=== PATIENT | female | born 1995 | race Two or more races ===

== ENCOUNTER 2016-07-24 01:23 | Inpatient (IN) | payer MEDICAID ==
[2016-07-24] MEDS ORDERED: Sodium Chloride 0.9% 10 ML Syringe FLUSH PRN (02:03)
[2016-07-24] MEDS ORDERED: Nalbuphine 10 MG/1 ML Vial IVPUSH ONE ×2 (05:25→10:43)
[2016-07-24] MEDS ORDERED: Nalbuphine 10 MG/1 ML Vial ONE (05:29)
[2016-07-24] MEDS ORDERED: Oxytocin 10 UNIT in Sodium Chloride 0.9% 1,000 ML IV SCH (08:15)
[2016-07-24] MEDS: Lactated Ringers 1,000 ML IV SCH ×2 (08:25→13:58)
--- NOTE | 2016-07-24 10:04 | PN ---
DATE SEEN: 07/24/2016 SUBJECTIVE: A 20-year-old, G1, P0. EDC of 07/29, 39 and 2 comes in with spontaneous rupture of membranes. The patient is pretty comfortable at this time. She has no concerns. She was given Nubain about an hour and half ago. OBJECTIVE: Cervix is 6 cm, 100% effaced, minus 1. heart tones are reactive and between 130s and 150s. ASSESSMENT: Primipara, spontaneous rupture of membranes. PLAN: Vaginal delivery. Also, she is group B negative, because I looked in the chart. I have the chart sent over. She was a late transfer to our clinic. /[id number] PE/MODL
--- NOTE | 2016-07-24 13:01 | PN ---
DATE SEEN: 07/24/2016 SUBJECTIVE: The patient is moe, clear fluid. OBJECTIVE: heart tones are reactive. Cervix is 8+, 100% effaced, and zero station. ASSESSMENT: Spontaneous labor with spontaneous rupture of membranes. PLAN: Vaginal delivery. Group B negative. /[id number] PE/MODL
[2016-07-24] MEDS ORDERED: fentaNYL 100 MCG/2 ML SDV ITHECAL ONE (13:20)
[2016-07-24] MEDS ORDERED: Morphine PF 10 MG/10 ML SDV ONE (13:20)
[2016-07-24] MEDS ORDERED: Scopolamine 1.5 MG Transdermal Patch ONE (13:40)
[2016-07-24] MEDS ORDERED: Metoclopramide 10 MG/2 ML SDV IV PRN (14:04)
[2016-07-24] MEDS ORDERED: Naltrexone 50 MG Tab PO PRN (14:04)
[2016-07-24] MEDS ORDERED: diphenhydrAMINE 50 MG/ML SDV IVPUSH PRN (14:04)
[2016-07-24] MEDS ORDERED: Ondansetron 4 MG/2 ML SDV IVPUSH PRN (14:04)
[2016-07-24] MEDS ORDERED: Naloxone 0.4 MG/ML SDV IVPUSH PRN (14:04)
[2016-07-24] MEDS ORDERED: Scopolamine 1.5 MG Transdermal Patch TOP ONE (14:04)
[2016-07-24] MEDS ORDERED: Promethazine 12.5 MG in Sodium Chloride 0.9% 50 ML IV PRN (14:04)
[2016-07-24] MEDS ORDERED: Nalbuphine 10 MG/1 ML Vial IVPUSH PRN (14:04)
[2016-07-24] MEDS ORDERED: Promethazine 6.25 MG in Sodium Chloride 0.9% 50 ML IV PRN (14:04)
[2016-07-24] MEDS ORDERED: diphenhydrAMINE 50 MG/ML SDV IV PRN (14:04)
[2016-07-24] MEDS ORDERED: ePHEDrine 50 MG/ML SDV IVPUSH PRN (14:04)
[2016-07-24] MEDS ORDERED: Famotidine/Normal Saline 20 MG in Premix Bag 50 BAG IV PRN (14:04)
[2016-07-24] MEDS ORDERED: Lactated Ringers 500 ML IV SCH ×2 (14:15)
[2016-07-24] MEDS ORDERED: Oxytocin 10 Units/1 ML SDV IM ONE (16:24)
[2016-07-24] MEDS ORDERED: Lidocaine 1% 20 ML MDV INJECT ONE (16:30)
[2016-07-24] MEDS ORDERED: Acetaminophen/Codeine 300-30 MG Tab PO PRN (17:05)
--- NOTE | 2016-07-24 17:10 | PCM.DEL ---
L & D Note - General Info Date of Service: 07/24/16 - Delivery Note Labor: augmented by oxytocin Delivery Outcome: Livebirth Presentation: OA Nuchal cord: none Anesthesia Type: Local, Intrathecal Anesthetic: lidocaine (xylocaine) 0.5% plain Local anesthetic volume: 5cc Amniotic Fluid Description: Clear Laceration: 2nd degree, periurethral Suture type: vicryl Suture size: 4-0 Placenta: intact, spontaneous Cord: 3 vessels Resuscitation needed: No Dobbins: bulb syringe - Patient Data Vitals - most recent: Last Vital Signs Temp 97.3 F 07/24/16 11:30 Pulse 84 07/24/16 14:45 Resp 20 07/24/16 14:14 BP 124/64 07/24/16 14:14 Pulse Ox 99 07/24/16 14:45 Weight - most recent: 225 lb Med Orders - Current: Current Medications Acetaminophen/Codeine Phosphate (Tylenol With Codeine No.3 300mg/30mg) 1 tab PO Q4H PRN PRN Reason: Pain (moderate 4-6) Diphenhydramine HCl (Benadryl) 25 mg IVPUSH ASDIRECTED PRN PRN Reason: EXTRAPYRAMIDAL SIDE EFFECTS Diphenhydramine HCl (Benadryl) 25 mg IV ASDIRECTED PRN PRN Reason: PRURITUS Ephedrine Sulfate (Ephedrine Sulfate) 0 mg IVPUSH ASDIRECTED PRN PRN Reason: Hypotension Lactated Ringer's (Ringers, Lactated) 1,000 mls @ 100 mls/hr IV ASDIRECTED [facility]AC[facility] Last Admin: 07/24/16 13:58 Dose: 100 mls/hr Oxytocin 10 unit/ Sodium (Chloride) 1,001 mls @ 12.01 mls/hr IV TITRATE [facility]AC[facility]; 2 MUNITS/MIN PRN Reason: Protocol Last Titration: 07/24/16 14:10 Dose: 20 munits/min, 120.12 mls/hr Famotidine 20 mg/ Premix 50 mls @ 100 mls/hr IV ONETIME PRN PRN Reason: PRURITIS Lactated Ringer's (Ringers, Lactated) 500 mls @ 999 mls/hr IV .SEECOMMENT [facility] Lactated Ringer's (Ringers, Lactated) 500 mls @ 999 mls/hr IV .BOLUS [facility] Promethazine HCl 6.25 mg/ (Sodium Chloride) 50.25 mls @ 200 mls/hr IV Q4H PRN PRN Reason: Nausea/Vomiting Promethazine HCl 12.5 mg/ (Sodium Chloride) 50.5 mls @ 200 mls/hr IV Q4H PRN PRN Reason: Nausea/Vomiting Ibuprofen (Motrin) 800 mg PO Q8H [facility] Nalbuphine HCl (Nubain) 10 mg IVPUSH Q1H PRN PRN Reason: PRURITUS Naltrexone HCl (Naltrexone) 50 mg PO ASDIRECTED PRN PRN Reason: REVERSAL Last Admin: 07/24/16 16:48 Dose: 50 mg Non-Formulary Medication ( #103/Iron Fumarate/Fa [ ]) 1 tab PO DAILY [facility] Ondansetron HCl (Zofran) 4 mg IVPUSH Q4H PRN PRN Reason: Nausea/Vomiting Sodium Chloride (Saline Flush) 10 ml FLUSH ASDIRECTED PRN PRN Reason: Keep Vein Open Last Admin: 07/24/16 05:47 Dose: 10 ml Discontinued Medications Metoclopramide HCl (Reglan) 10 mg IV ONETIME PRN PRN Reason: Nausea/Vomiting Nalbuphine HCl (Nubain) 10 mg IVPUSH ONETIME ONE Stop: 07/24/16 05:26 Last Admin: 07/24/16 05:48 Dose: 10 mg Nalbuphine HCl (Nubain) Confirm Administered Dose 10 mg .ROUTE .STK-MED ONE Stop: 07/24/16 05:30 Last Admin: 07/24/16 05:45 Dose: Not Given Nalbuphine HCl (Nubain) 10 mg IVPUSH ONETIME ONE Stop: 07/24/16 10:44 Last Admin: 07/24/16 11:03 Dose: 10 mg Naloxone HCl (Narcan) 0.1 mg IVPUSH .SEECOMMENT PRN PRN Reason: Respiratory Depression Stop: 07/24/16 14:05 Scopolamine (Transderm-Scop) Confirm Administered Dose 1.5 mg .ROUTE .STK-MED ONE Stop: 07/24/16 13:41 Last Admin: 07/24/16 13:53 Dose: 1.5 mg Scopolamine (Transderm-Scop) 1.5 mg TOP ONETIME ONE Stop: 07/24/16 14:05 Last Admin: 07/24/16 14:34 Dose: Not Given - Problem List & Annotations (1) Vaginal delivery SNOMED Code(s): 130773357 Code(s): O80 - ENCOUNTER FOR FULL-TERM UNCOMPLICATED DELIVERY Status: Acute Current Visit: Yes - Problem List Review Problem List Initiated/Reviewed/Updated: Yes - My Orders Last 24 Hours: My Active Orders 07/24/16 01:33 OB Check [OM.PC] ONETIME 07/24/16 01:59 Admission Status [Patient Status] [ADT] Routine 07/24/16 02:03 Patient Status [ADT] Routine Communication Order [RC] ASDIRECTED Heart Tones [RC] PER UNIT ROUTINE Notify Provider Vital Signs [RC] PRN Notify Provider [RC] PRN Sodium Chloride 0.9% [Saline Flush] 10 ml FLUSH ASDIRECTED PRN Saline Lock Insert [OM.PC] Routine 07/24/16 08:04 Communication Order [RC] ASDIRECTED Communication Order [RC] ASDIRECTED Communication Order [RC] ASDIRECTED Communication Order [RC] ASDIRECTED Notify Provider [RC] PRN Notify Provider [RC] STAT 07/24/16 08:15 Lactated Ringers [Ringers, Lactated] 1,000 ml IV ASDIRECTED Oxytocin [Pitocin] 10 unit Sodium Chloride 0.9% [Normal Saline] 1,000 ml IV TITRATE 07/24/16 13:50 Oxygen Therapy [RC] ASDIRECTED 07/24/16 17:05 Patient Status [ADT] Routine May Shower [RC] ASDIRECTED Up ad Pat [RC] ASDIRECTED Vital Signs [RC] PFP Acetaminophen/Codeine [Tylenol with Codeine No.3 300MG/30MG] 1 tab PO Q4H PRN Assess Lochia [WOMSER] Per Unit Routine Assess Uterine Involution [WOMSER] Per Unit Routine Breast Pump [WOMSER] Per Unit Routine Resuscitation Status Routine 07/24/16 17:06 Ice Therapy [OM.PC] Per Unit Routine Perineal Care [OM.PC] Per Unit Routine Peripheral IV Discontinue [OM.PC] Routine Sitz Bath [OM.PC] Per Unit Routine 07/24/16 17:15 Ibuprofen [Motrin] 800 mg PO Q8H 07/24/16 Dinner Regular Diet [DIET] 07/25/16 05:11 HEMOGLOBIN/HEMATOCRIT,HH [HEME] AM 07/25/16 09:00 #103/Iron Fumarate/Fa [ ] 1 tab PO DAILY - Assessment Assessment:: Normal care. See orders.
[2016-07-24] MEDS: Ibuprofen 800 MG Tab PO SCH (18:24)
[2016-07-25] MEDS: Ibuprofen 800 MG Tab PO SCH ×3 (02:39→17:48)
[2016-07-25] MEDS: Iron Polysaccharides Complex 150 MG Cap PO SCH ×2 (10:14→21:00)
[2016-07-25] MEDS: Prenatal Multivitamin with Calcium/Folic Acid/Fe Fumarate Cap PO SCH (10:14)
--- NOTE | 2016-07-25 11:25 | PCM.PNPP ---
- General Info Date of Service: 07/25/16 Subjective Update: Patient states she got lightheaded a couple times last night and better today. She denies any excessive vaginal bleeding. No leg swelling. Functional Status: Reports: pain controlled - Patient Data Vital Signs - most recent: Last Vital Signs Temp 98.1 F 07/25/16 08:15 Pulse 100 07/25/16 08:15 Resp 16 07/25/16 08:15 BP 124/61 07/25/16 08:15 Pulse Ox 98 07/25/16 08:15 Weight - most recent: 225 lb I&O - last 24 hours: Intake & Output 07/24/16 07/25/16 07/25/16 22:59 06:59 14:59 Intake Total 1005 Balance 1005 Lab Results - last 24 hrs: Laboratory Results - last 24 hr 07/25/16 Range/Units 06:34 Hgb 8.9 L (11.5-15.5) g/dL Hct 26.5 L (30.0-51.3) % Med Orders - Current: Current Medications Acetaminophen/Codeine Phosphate (Tylenol With Codeine No.3 300mg/30mg) 1 tab PO Q4H PRN PRN Reason: Pain (moderate 4-6) Diphenhydramine HCl (Benadryl) 25 mg IVPUSH ASDIRECTED PRN PRN Reason: EXTRAPYRAMIDAL SIDE EFFECTS Diphenhydramine HCl (Benadryl) 25 mg IV ASDIRECTED PRN PRN Reason: PRURITUS Ephedrine Sulfate (Ephedrine Sulfate) 0 mg IVPUSH ASDIRECTED PRN PRN Reason: Hypotension Lactated Ringer's (Ringers, Lactated) 1,000 mls @ 100 mls/hr IV ASDIRECTED TRACIE Last Admin: 07/24/16 13:58 Dose: 100 mls/hr Oxytocin 10 unit/ Sodium (Chloride) 1,001 mls @ 12.01 mls/hr IV TITRATE TRACIE; 2 MUNITS/MIN PRN Reason: Protocol Last Titration: 07/24/16 14:10 Dose: 20 munits/min, 120.12 mls/hr Famotidine 20 mg/ Premix 50 mls @ 100 mls/hr IV ONETIME PRN PRN Reason: PRURITIS Lactated Ringer's (Ringers, Lactated) 500 mls @ 999 mls/hr IV .SEECOMMENT [facility] Lactated Ringer's (Ringers, Lactated) 500 mls @ 999 mls/hr IV .BOLUS [facility] Promethazine HCl 6.25 mg/ (Sodium Chloride) 50.25 mls @ 200 mls/hr IV Q4H PRN PRN Reason: Nausea/Vomiting Promethazine HCl 12.5 mg/ (Sodium Chloride) 50.5 mls @ 200 mls/hr IV Q4H PRN PRN Reason: Nausea/Vomiting Ibuprofen (Motrin) 800 mg PO Q8H [facility] Last Admin: 07/25/16 10:14 Dose: 800 mg Nalbuphine HCl (Nubain) 10 mg IVPUSH Q1H PRN PRN Reason: PRURITUS Naltrexone HCl (Naltrexone) 50 mg PO ASDIRECTED PRN PRN Reason: REVERSAL Last Admin: 07/24/16 16:48 Dose: 50 mg Ondansetron HCl (Zofran) 4 mg IVPUSH Q4H PRN PRN Reason: Nausea/Vomiting Polysaccharide Iron Complex (Ferrex 150) 150 mg PO BID [facility] Last Admin: 07/25/16 10:14 Dose: 150 mg Multivit/Folic Acid/Iron (-U) 1 each PO DAILY [facility] Last Admin: 07/25/16 10:14 Dose: 1 each Sodium Chloride (Saline Flush) 10 ml FLUSH ASDIRECTED PRN PRN Reason: Keep Vein Open Last Admin: 07/24/16 05:47 Dose: 10 ml Discontinued Medications Lidocaine HCl (Xylocaine 1%) 20 ml INJECT ONETIME ONE Stop: 07/24/16 16:31 Last Admin: 07/24/16 16:30 Dose: 20 ml Metoclopramide HCl (Reglan) 10 mg IV ONETIME PRN PRN Reason: Nausea/Vomiting Nalbuphine HCl (Nubain) 10 mg IVPUSH ONETIME ONE Stop: 07/24/16 05:26 Last Admin: 07/24/16 05:48 Dose: 10 mg Nalbuphine HCl (Nubain) Confirm Administered Dose 10 mg .ROUTE .STK-MED ONE Stop: 07/24/16 05:30 Last Admin: 07/24/16 05:45 Dose: Not Given Nalbuphine HCl (Nubain) 10 mg IVPUSH ONETIME ONE Stop: 07/24/16 10:44 Last Admin: 07/24/16 11:03 Dose: 10 mg Naloxone HCl (Narcan) 0.1 mg IVPUSH .SEECOMMENT PRN PRN Reason: Respiratory Depression Stop: 07/24/16 14:05 Oxytocin (Pitocin) 10 unit IM ONETIME ONE Stop: 07/24/16 16:25 Last Admin: 07/24/16 16:24 Dose: 10 unit Scopolamine (Transderm-Scop) Confirm Administered Dose 1.5 mg .ROUTE .STK-MED ONE Stop: 07/24/16 13:41 Last Admin: 07/24/16 13:53 Dose: 1.5 mg Scopolamine (Transderm-Scop) 1.5 mg TOP ONETIME ONE Stop: 07/24/16 14:05 Last Admin: 07/24/16 14:34 Dose: Not Given - Interaction Disposition, : [place] in Room with Family Infant Interaction: Holding Infant Infant Feeding: Breastfed Infant; Nursed Well Support Person: Mother, Sister - Recovery Exam Fundal Tone: Firm Fundal Level: At Umbilicus Fundal Placement: Midline Lochia Amount: Moderate Lochia Color: Rubra/Red Perineum Description: Edematous Episiotomy/Laceration: Approximated Bladder Status: Voiding - Exam General: alert, oriented, cooperative Neck: supple Lungs: Normal respiratory effort Abdomen: other (Fundus is firm.) Extremities: no edema - Problem List & Annotations (1) Vaginal delivery SNOMED Code(s): 208963120 Code(s): O80 - ENCOUNTER FOR FULL-TERM UNCOMPLICATED DELIVERY Status: Acute Current Visit: Yes - Problem List Review Problem List Initiated/Reviewed/Updated: Yes - My Orders Last 24 Hours: My Active Orders 07/24/16 17:05 Patient Status [ADT] Routine May Shower [RC] ASDIRECTED Up ad Pat [RC] ASDIRECTED Vital Signs [RC] PFP Acetaminophen/Codeine [Tylenol with Codeine No.3 300MG/30MG] 1 tab PO Q4H PRN Assess Lochia [WOMSER] Per Unit Routine Assess Uterine Involution [WOMSER] Per Unit Routine Breast Pump [WOMSER] Per Unit Routine Resuscitation Status Routine 07/24/16 17:06 Ice Therapy [OM.PC] Per Unit Routine Perineal Care [OM.PC] Per Unit Routine Peripheral IV Discontinue [OM.PC] Routine Sitz Bath [OM.PC] Per Unit Routine 07/24/16 17:15 Ibuprofen [Motrin] 800 mg PO Q8H 07/24/16 Dinner Regular Diet [DIET] 07/25/16 09:00 Iron Polysaccharides Complex [Ferrex 150] 150 mg PO BID Vit/FA/Fe Fumarate [-U] 1 each PO DAILY - Plan Plan:: 1. Iron is 8.9. 2. Iron 150 mg twice a day. 3. Continue current care.
[2016-07-26] MEDS: Ibuprofen 800 MG Tab PO SCH ×2 (00:51→09:00)
--- NOTE | 2016-07-26 08:01 | PCM.PN ---
- General Info Date of Service: 07/26/16 Admission Dx/Problem (Free Text): Patient without concerns. Ibuprofen is controlling her pain. She has very minimal bleeding but it's improved. No abdominal pain. No fevers or chills. - Patient Data Vitals - most recent: Last Vital Signs Temp 97.1 F 07/25/16 23:40 Pulse 119 H 07/25/16 23:40 Resp 18 07/25/16 23:40 BP 112/62 07/25/16 23:40 Pulse Ox 98 07/25/16 23:40 Weight - most recent: 225 lb Med Orders - Current: Current Medications Acetaminophen/Codeine Phosphate (Tylenol With Codeine No.3 300mg/30mg) 1 tab PO Q4H PRN PRN Reason: Pain (moderate 4-6) Diphenhydramine HCl (Benadryl) 25 mg IVPUSH ASDIRECTED PRN PRN Reason: EXTRAPYRAMIDAL SIDE EFFECTS Diphenhydramine HCl (Benadryl) 25 mg IV ASDIRECTED PRN PRN Reason: PRURITUS Ephedrine Sulfate (Ephedrine Sulfate) 0 mg IVPUSH ASDIRECTED PRN PRN Reason: Hypotension Lactated Ringer's (Ringers, Lactated) 1,000 mls @ 100 mls/hr IV ASDIRECTED [facility] Last Admin: 07/24/16 13:58 Dose: 100 mls/hr Oxytocin 10 unit/ Sodium (Chloride) 1,001 mls @ 12.01 mls/hr IV TITRATE [facility]ACIE; 2 MUNITS/MIN PRN Reason: Protocol Last Titration: 07/24/16 14:10 Dose: 20 munits/min, 120.12 mls/hr Famotidine 20 mg/ Premix 50 mls @ 100 mls/hr IV ONETIME PRN PRN Reason: PRURITIS Lactated Ringer's (Ringers, Lactated) 500 mls @ 999 mls/hr IV .SEECOMMENT [facility] Lactated Ringer's (Ringers, Lactated) 500 mls @ 999 mls/hr IV .BOLUS [facility] Promethazine HCl 6.25 mg/ (Sodium Chloride) 50.25 mls @ 200 mls/hr IV Q4H PRN PRN Reason: Nausea/Vomiting Promethazine HCl 12.5 mg/ (Sodium Chloride) 50.5 mls @ 200 mls/hr IV Q4H PRN PRN Reason: Nausea/Vomiting Ibuprofen (Motrin) 800 mg PO Q8H [facility] Last Admin: 07/26/16 00:51 Dose: 800 mg Nalbuphine HCl (Nubain) 10 mg IVPUSH Q1H PRN PRN Reason: PRURITUS Naltrexone HCl (Naltrexone) 50 mg PO ASDIRECTED PRN PRN Reason: REVERSAL Last Admin: 07/24/16 16:48 Dose: 50 mg Ondansetron HCl (Zofran) 4 mg IVPUSH Q4H PRN PRN Reason: Nausea/Vomiting Polysaccharide Iron Complex (Ferrex 150) 150 mg PO BID [facility] Last Admin: 07/25/16 21:00 Dose: 150 mg Multivit/Folic Acid/Iron (-U) 1 each PO DAILY [facility] Last Admin: 07/25/16 10:14 Dose: 1 each Sodium Chloride (Saline Flush) 10 ml FLUSH ASDIRECTED PRN PRN Reason: Keep Vein Open Last Admin: 07/24/16 05:47 Dose: 10 ml Discontinued Medications Fentanyl (Sublimaze) 25 mcg ITHECAL .STK-MED ONE Stop: 07/24/16 13:21 Lidocaine HCl (Xylocaine 1%) 20 ml INJECT ONETIME ONE Stop: 07/24/16 16:31 Last Admin: 07/24/16 16:30 Dose: 20 ml Metoclopramide HCl (Reglan) 10 mg IV ONETIME PRN PRN Reason: Nausea/Vomiting Morphine Sulfate (Duramorph Pf) 0.3 mg .XX .STK-MED ONE Stop: 07/24/16 13:21 Nalbuphine HCl (Nubain) 10 mg IVPUSH ONETIME ONE Stop: 07/24/16 05:26 Last Admin: 07/24/16 05:48 Dose: 10 mg Nalbuphine HCl (Nubain) Confirm Administered Dose 10 mg .ROUTE .STK-MED ONE Stop: 07/24/16 05:30 Last Admin: 07/24/16 05:45 Dose: Not Given Nalbuphine HCl (Nubain) 10 mg IVPUSH ONETIME ONE Stop: 07/24/16 10:44 Last Admin: 07/24/16 11:03 Dose: 10 mg Naloxone HCl (Narcan) 0.1 mg IVPUSH .SEECOMMENT PRN PRN Reason: Respiratory Depression Stop: 07/24/16 14:05 Oxytocin (Pitocin) 10 unit IM ONETIME ONE Stop: 07/24/16 16:25 Last Admin: 07/24/16 16:24 Dose: 10 unit Scopolamine (Transderm-Scop) Confirm Administered Dose 1.5 mg .ROUTE .STK-MED ONE Stop: 07/24/16 13:41 Last Admin: 07/24/16 13:53 Dose: 1.5 mg Scopolamine (Transderm-Scop) 1.5 mg TOP ONETIME ONE Stop: 07/24/16 14:05 Last Admin: 07/24/16 14:34 Dose: Not Given - Exam General: alert, oriented Neck: supple Lungs: Normal respiratory effort Abdomen: other (Fundus is firm) Extremities: no edema - Problem List & Annotations (1) Vaginal delivery SNOMED Code(s): 499592509 Code(s): O80 - ENCOUNTER FOR FULL-TERM UNCOMPLICATED DELIVERY Status: Acute Current Visit: Yes - Problem List Review Problem List Initiated/Reviewed/Updated: Yes - My Orders Last 24 Hours: My Active Orders 07/25/16 09:00 Iron Polysaccharides Complex [Ferrex 150] 150 mg PO BID Vit/FA/Fe Fumarate [-U] 1 each PO DAILY 07/26/16 07:58 Ready for Discharge [RC] PER UNIT ROUTINE - Plan Plan:: 1. discharge to home. 2. Recheck in 6 weeks for check.
--- NOTE | 2016-07-26 08:03 | PCM.DCSUM1 ---
Discharge Summary - Hospital Course Free Text/Narrative:: Hospital course-after delivery patient had a couple episodes of feeling dizzy and almost passing out. The next day she was feeling much better without dizziness. Hemoglobin came back 8.6 on day 2. Start iron 150 mg a day. Patient's bleeding slowed nicely. She had no concerns. Vital signs are stable she's afebrile. Discharge home and recheck in 6 weeks for check. Brief History: comes in at 39 weeks delivered as a healthy male patient. She was group B negative and had spontaneous rupture of membranes. She was augmented with PIT. She had a second-degree laceration was repaired. See delivery note. - Discharge Data Discharge Date: 07/26/16 Discharge Disposition: Home, Self-Care 01 Condition: Good - Discharge Diagnosis/Problem(s) (1) Vaginal delivery SNOMED Code(s): 092770618 ICD Code: O80 - ENCOUNTER FOR FULL-TERM UNCOMPLICATED DELIVERY Status: Acute Current Visit: Yes - Patient Instructions Diet: Regular Diet as Tolerated Activity: As Tolerated Driving: May Drive Today Showering/Bathing: May Shower Notify Provider of: Increased Pain, Swelling and Redness, Drainage, Nausea and/ or Vomiting Other/Special Instructions: 1. Discharge home. 2. Recheck for check in 6 weeks. 3. Patient deferred Tylenol 3. She will use over-the- counter ibuprofen when necessary for pain. - Discharge Plan Prescriptions/Med Rec: Iron Polysaccharides Complex [Ferrex 150] 150 mg PO BID #30 cap Home Medications: Home Meds #103/Iron Fumarate/Fa [ ] 1 tab PO DAILY 07/24/16 [ History] Iron Polysaccharides Complex [Ferrex 150] 150 mg PO BID #30 cap 07/26/16 [Rx] Patient Handouts: Shaken Baby Syndrome, , Jaundice, [place], and Inducing , Infant Acne, Formula Feeding, Rashes, Taking Your Child's Temperature, Rooming-In With Your , Mastitis, [id number], Vaginal Delivery, and Mastitis, Depression and Baby Blues, Baby Safe Sleeping Information, Circumcision, Infant, Care After, [id number], Constipation, Infant, Vaginal Laceration, Pain Relief During Labor and Delivery, [place] Baby Care, Home Care Instructions for Mom, Vaginal Delivery, Care After, Breast Engorgement, Breast Pumping Tips, Lejr-[id number], SIDS Prevention Information, Baby Safe Sleeping Information, [id number], Thrush, Infant, [id number], Challenges and Solutions, Care After Vaginal Delivery, Diarrhea, , Deep Vein Thrombosis, Rear-Facing Infant-Only Child Safety Seat - Discharge Summary/Plan Comment DC Time >30 min.: No - Patient Data Vitals - Most Recent: Last Vital Signs Temp 97.1 F 07/25/16 23:40 Pulse 119 H 07/25/16 23:40 Resp 18 07/25/16 23:40 BP 112/62 07/25/16 23:40 Pulse Ox 98 07/25/16 23:40 Weight - Most Recent: 225 lb Med Orders - Current: Current Medications Acetaminophen/Codeine Phosphate (Tylenol With Codeine No.3 300mg/30mg) 1 tab PO Q4H PRN PRN Reason: Pain (moderate 4-6) Diphenhydramine HCl (Benadryl) 25 mg IVPUSH ASDIRECTED PRN PRN Reason: EXTRAPYRAMIDAL SIDE EFFECTS Diphenhydramine HCl (Benadryl) 25 mg IV ASDIRECTED PRN PRN Reason: PRURITUS Ephedrine Sulfate (Ephedrine Sulfate) 0 mg IVPUSH ASDIRECTED PRN PRN Reason: Hypotension Lactated Ringer's (Ringers, Lactated) 1,000 mls @ 100 mls/hr IV ASDIRECTED [facility] Last Admin: 07/24/16 13:58 Dose: 100 mls/hr Oxytocin 10 unit/ Sodium (Chloride) 1,001 mls @ 12.01 mls/hr IV TITRATE [facility]ACIE; 2 MUNITS/MIN PRN Reason: Protocol Last Titration: 07/24/16 14:10 Dose: 20 munits/min, 120.12 mls/hr Famotidine 20 mg/ Premix 50 mls @ 100 mls/hr IV ONETIME PRN PRN Reason: PRURITIS Lactated Ringer's (Ringers, Lactated) 500 mls @ 999 mls/hr IV .SEECOMMENT [facility] Lactated Ringer's (Ringers, Lactated) 500 mls @ 999 mls/hr IV .BOLUS [facility] Promethazine HCl 6.25 mg/ (Sodium Chloride) 50.25 mls @ 200 mls/hr IV Q4H PRN PRN Reason: Nausea/Vomiting Promethazine HCl 12.5 mg/ (Sodium Chloride) 50.5 mls @ 200 mls/hr IV Q4H PRN PRN Reason: Nausea/Vomiting Ibuprofen (Motrin) 800 mg PO Q8H [facility] Last Admin: 07/26/16 00:51 Dose: 800 mg Nalbuphine HCl (Nubain) 10 mg IVPUSH Q1H PRN PRN Reason: PRURITUS Naltrexone HCl (Naltrexone) 50 mg PO ASDIRECTED PRN PRN Reason: REVERSAL Last Admin: 07/24/16 16:48 Dose: 50 mg Ondansetron HCl (Zofran) 4 mg IVPUSH Q4H PRN PRN Reason: Nausea/Vomiting Polysaccharide Iron Complex (Ferrex 150) 150 mg PO BID [facility] Last Admin: 07/25/16 21:00 Dose: 150 mg Multivit/Folic Acid/Iron (-U) 1 each PO DAILY [facility] Last Admin: 07/25/16 10:14 Dose: 1 each Sodium Chloride (Saline Flush) 10 ml FLUSH ASDIRECTED PRN PRN Reason: Keep Vein Open Last Admin: 07/24/16 05:47 Dose: 10 ml Discontinued Medications Fentanyl (Sublimaze) 25 mcg ITHECAL .STK-MED ONE Stop: 07/24/16 13:21 Lidocaine HCl (Xylocaine 1%) 20 ml INJECT ONETIME ONE Stop: 07/24/16 16:31 Last Admin: 07/24/16 16:30 Dose: 20 ml Metoclopramide HCl (Reglan) 10 mg IV ONETIME PRN PRN Reason: Nausea/Vomiting Morphine Sulfate (Duramorph Pf) 0.3 mg .XX .STK-MED ONE Stop: 07/24/16 13:21 Nalbuphine HCl (Nubain) 10 mg IVPUSH ONETIME ONE Stop: 07/24/16 05:26 Last Admin: 07/24/16 05:48 Dose: 10 mg Nalbuphine HCl (Nubain) Confirm Administered Dose 10 mg .ROUTE .STK-MED ONE Stop: 07/24/16 05:30 Last Admin: 07/24/16 05:45 Dose: Not Given Nalbuphine HCl (Nubain) 10 mg IVPUSH ONETIME ONE Stop: 07/24/16 10:44 Last Admin: 07/24/16 11:03 Dose: 10 mg Naloxone HCl (Narcan) 0.1 mg IVPUSH .SEECOMMENT PRN PRN Reason: Respiratory Depression Stop: 07/24/16 14:05 Oxytocin (Pitocin) 10 unit IM ONETIME ONE Stop: 07/24/16 16:25 Last Admin: 07/24/16 16:24 Dose: 10 unit Scopolamine (Transderm-Scop) Confirm Administered Dose 1.5 mg .ROUTE .STK-MED ONE Stop: 07/24/16 13:41 Last Admin: 07/24/16 13:53 Dose: 1.5 mg Scopolamine (Transderm-Scop) 1.5 mg TOP ONETIME ONE Stop: 07/24/16 14:05 Last Admin: 07/24/16 14:34 Dose: Not Given *Q Meaningful Use (DIS) - VTE *Q VTE Criteria *Q: - Stroke *Q Stroke Criteria *Q: - AMI *Q AMI Criteria *Q:
[2016-07-26 08:58] VITALS: BP 102/67
[2016-07-26] MEDS: Iron Polysaccharides Complex 150 MG Cap PO SCH (09:00)
[2016-07-26] MEDS: Prenatal Multivitamin with Calcium/Folic Acid/Fe Fumarate Cap PO SCH (09:00)
== END 2016-07-26 09:25 | disposition home or self-care (01) | DRG 775 ==
LOC: FB.OBCHECK 01:23 → FB.OB 01:24
PROVIDERS: ADMIT Family Medicine; ATTEND Family Medicine
PROC: 10E0XZZ Delivery of Products of Conception, External Approach (ICD-10-PCS; principal; 2016-07-24)
PROC: 0KQM0ZZ Repair Perineum Muscle, Open Approach (ICD-10-PCS; 2016-07-24)
PROC: 00HU33Z Insertion of Infusion Device into Spinal Canal, Percutaneous Approach (ICD-10-PCS; 2016-07-24)
DX: O70.1 Second degree perineal laceration during delivery (principal); Z37.0 Single live birth; Z3A.39 39 weeks gestation of pregnancy
CPT/HCPCS: 36415; 85014; 85018; A9270-GY; J2270; J2300; J2590; J3010; J7040; J7050; J7120

== ENCOUNTER 2020-11-18 12:43 | Emergency (ER) | payer MEDICAID ==
[2020-11-18 12:56] VITALS: BP 125/67; PULSE 88
--- NOTE | 2020-11-18 13:11 | EDM.PDOC ---
ED HPI GENERAL MEDICAL PROBLEM - General Stated Complaint: FINGER INFECTION Time Seen by Provider: 11/18/20 13:00 Source of Information: Reports: Patient History Limitations: Reports: No Limitations - History of Present Illness INITIAL COMMENTS - FREE TEXT/NARRATIVE: Patient presented to the ED because of Left mid finger redness, swelling and pain. It started a week ago when she was biting on her nail. She noticed a tiny pus coming out from the edge of her nail. - Related Data Allergies Allergy/AdvReac Type Severity Reaction Status Date / Time No Known Allergies Allergy Verified 07/24/16 07:07 Home Meds: Home Meds #103/Iron Fumarate/Fa [ ] 1 tab PO DAILY 07/24/16 [History] Iron Polysaccharides Complex [Ferrex 150] 150 mg PO BID #30 cap 07/26/16 [Rx] Amoxicillin/Potassium Clav [Augmentin 875-125 Tablet] 1 each PO BID #20 tablet 11/18/20 [Rx] Past Medical History - Past Health History Medical/Surgical History: Denies Medical/Surgical History HEENT History: Reports: Impaired Vision Other HEENT History: wears glasses [employer] History: Reports: Social & Family History - Family History Family Medical History: No Pertinent Family History - Caffeine Use Caffeine Use: Reports: None ED ROS GENERAL - Review of Systems Review Of Systems: See Below Constitutional: Reports: No Symptoms HEENT: Reports: No Symptoms Respiratory: Reports: No Symptoms Cardiovascular: Reports: No Symptoms Endocrine: Reports: No Symptoms GI/Abdominal: Reports: No Symptoms Skin: Reports: Erythema ED EXAM, SKIN/RASH Exam: See Below Exam Limited By: No Limitations General Appearance: Alert, No Apparent Distress Ears: Normal External Exam, Normal Canal Nose: Normal Inspection, Normal Mucosa, No Blood Throat/Mouth: Normal Inspection, Normal Lips, Normal Teeth Head: Atraumatic, Normocephalic Neck: Normal Inspection, Supple, Non-Tender, Full Range of Motion Respiratory/Chest: No Respiratory Distress, Lungs Clear, Normal Breath Sounds, No Accessory Muscle Use, Chest Non-Tender Cardiovascular: Normal Peripheral Pulses, Regular Rate, Rhythm, No Edema, No JVD, No Murmur, No Rub GI/Abdominal: Normal Bowel Sounds, Soft, Non-Tender Back Exam: Normal Inspection, Full Range of Motion Extremities: Normal Inspection, Normal Range of Motion Neurological: Alert, Oriented, CN II-XII Intact Skin: Warm, Erythema Course - Vital Signs Last Recorded V/S: Last Vital Signs Temp 37.2 C 11/18/20 12:55 Pulse 88 11/18/20 12:55 Resp 18 11/18/20 12:55 BP 125/67 11/18/20 12:55 Pulse Ox 100 11/18/20 12:55 Departure - Departure Time of Disposition: 13:15 Disposition: Home, Self-Care 01 Clinical Impression: Cellulitis - Discharge Information Prescriptions: Amoxicillin/Potassium Clav [Augmentin 875-125 Tablet] 1 each PO BID #20 tablet Referrals: Myra Heard PA-C [Primary Care Provider] - Additional Instructions: Please read discharge instructions on cellulitis Soak your finger in look warm water with a tsp of salt to release the pressure Take ibuprofen 800 mg with tylenol 1000 mg every 8 hours as needed for pain Augmentin 875 mg twice daily for 10 days Follow up as needed Sepsis Event Note (ED) - Evaluation Sepsis Screening Result: No Definite Risk - Focused Exam Vital Signs: Vital Signs Temp Pulse Resp BP Pulse Ox 11/18/20 12:55 37.2 C 88 18 125/67 100
== END 2020-11-18 13:20 | disposition home or self-care (01) ==
LOC: FB.ED 12:43
DX: L03.012 Cellulitis of left finger (principal)
CPT/HCPCS: 99283

== ENCOUNTER 2022-03-20 12:50 | Emergency (ER) | payer MEDICAID ==
[2022-03-20] MEDS ORDERED: Diphtheria,Pertussis(Acell),Tetanus Vaccine 0.5 ML Syringe IM ONE (13:19)
[2022-03-20 13:30] VITALS: BP 130/86; PULSE 98
== END 2022-03-20 15:30 ==
LOC: FB.ED 12:50
DX: S41.112A Laceration without foreign body of left upper arm, initial encounter (principal); Z23 Encounter for immunization; Z79.899 Other long term (current) drug therapy; W26.8XXA Contact with other sharp object(s), not elsewhere classified, initial encounter
CPT/HCPCS: 12001; 90471; 90715; 99282-25